=== PATIENT | male | born 1985 | race Caucasian/White ===

== ENCOUNTER 2017-09-15 09:57 | Emergency (ER) | payer BC ==
[2017-09-15 10:21] VITALS: BP 125/90
--- NOTE | 2017-09-15 10:43 | UC ---
Throat Pain/Nasal Jay HPI - HPI Summary HPI Summary: 32M presents with sore throat for past week. He states he has had could like symptoms for past week and then he developed a more severe sore throat in past couple days. He is still able to swallow. He states pain radiates to her ears. He denies any SOB or chest pain. Had a cough but that has disappear. He felt feverious. Took ibuprofen for pain. right tonsil at baseline is large than left. <Katia Taylor - Last Filed: 09/15/17 16:43> <Lennie Monzon - Last Filed: 09/15/17 18:58> - History of Current Complaint Chief Complaint: UCRespiratory Stated Complaint: COUGH, THROAT Time Seen by Provider: 09/15/17 10:26 - Allergies/Home Medications Allergies/Adverse Reactions: Allergies Allergy/AdvReac Type Severity Reaction Status Date / Time Penicillins Allergy Unknown Verified 09/15/17 10:21 Reaction Details Home Medications: Home Medications Dextromethorphan-Phenylephrine [Vicks Dayquil Cold & Flu] 2 cap PO DAILY PRN [History Confirmed 09/15/17] [id number] [Nyquil Severe Cold/Flu 5-6.25-10-325 mg/15Ml] 1 dose PO BEDTIME PRN 09/15/17 [History Confirmed 09/15/17] PMH/Surg Hx/FS Hx/Imm Hx Endocrine History: Other Other Endocrine History: no DM Cardiovascular History: Other Other Cardiovascular History: no HTN - Surgical History Surgical History: Yes Surgery Procedure, Year, and Place: L knee - Family History Known Family History: Positive: Hypertension - Social History Alcohol Use: Occasionally Substance Use Type: None Smoking Status (MU): Former Smoker Type: Cigarettes Amount Used/How Often: a few cigarettes a week Length of Time of Smoking/Using Tobacco: off/on past 3 yrs Have You Smoked in the Last Year: Yes When Did the Patient Quit Smoking/Using Tobacco: Summer 2016 <Katia Taylor - Last Filed: 09/15/17 16:43> Review of Systems Constitutional: Negative ENT: Sore Throat Respiratory: Negative Cardiovascular: Negative All Other Systems Reviewed And Are Negative: Yes <Katia Taylor - Last Filed: 09/15/17 16:43> Physical Exam Triage Information Reviewed: Yes Appearance: Well-Appearing Vital Signs: Initial Vital Signs Temp 97.6 F 09/15/17 10:13 Pulse 92 09/15/17 10:13 Resp 18 09/15/17 10:13 BP 125/90 09/15/17 10:13 Pulse Ox 99 09/15/17 10:13 Vital Signs Reviewed: Yes Eyes: Positive: Conjunctiva Clear ENT: Positive: Pharyngeal erythema, TMs normal, Tonsillar swelling - +@, Tonsillar exudate, Other: - uvula midline, soft palate symmetric, right tonsil> left but no shifting past midline. Negative: Trismus, Muffled/hoarse voice Neck: Positive: Supple, Nontender, No Lymphadenopathy Respiratory: Positive: Lungs clear, Normal breath sounds Cardiovascular: Positive: RRR Abdomen Description: Positive: Nontender, Soft Bowel Sounds: Positive: Present Musculoskeletal Exam: Normal Neurological Exam: Normal Psychological Exam: Normal Skin Exam: Normal <Katia Taylor - Last Filed: 09/15/17 16:43> Vital Signs: Initial Vital Signs Temp 97.6 F 09/15/17 10:13 Pulse 92 09/15/17 10:13 Resp 18 09/15/17 10:13 BP 125/90 09/15/17 10:13 Pulse Ox 99 09/15/17 10:13 <Lennie Monzon - Last Filed: 09/15/17 18:58> Throat Pain/Nasal Course/Dx - Course Course Of Treatment: 32M presents with sore throat for past week. He states he has had could like symptoms for past week and then he developed a more severe sore throat in past couple days. He is still able to swallow. He states pain radiates to her ears. He denies any SOB or chest pain. Had a cough but that has disappear. He felt feverious. Took ibuprofen for pain. on exam tonsils+2 , exudate, uvula midline, soft palate symmetric. right is large than left slightly but no uvula shift and patient states that is his baseline. warned of signs to go to ED for to look for peritonsillar abscess but does not appear as peritonsillar abscess at this time. strept attempted twice and invalid. due to symptoms will treat as strept with clind due to allergies. patient understand and agrees with plan. - Differential Dx/Diagnosis Differential Diagnosis/HQI/PQRI: Peritonsillar Abscess, Tonsillitis, Other - strept Provider Diagnoses: strept throat <Katia Taylor - Last Filed: 09/15/17 16:43> Discharge <Katia Taylor - Last Filed: 09/15/17 16:43> <Lennie Monzon - Last Filed: 09/15/17 18:58> - Discharge Plan Condition: Good Disposition: HOME Prescriptions: Clindamycin Cap(NF) [Clindamycin Cap 300 mg Cap(NF)] 300 mg PO TID #30 cap Dexamethasone TAB* [Decadron TAB*] 4 mg PO DAILY #5 tab Patient Education Materials: Strep Throat (ED) Forms: *School Release Referrals: No Primary Care Phys,NOPCP [Primary Care Provider] - Additional Instructions: Take antibiotic three times a day for 10 days Take steroid once a day for 5 days Take Tylenol or ibuprofen for pain/fever every 6 hours Can gargle salt water, use cough drops or products such as cloraseptic spray for pain Return to ED if develop difficulty breathing or unable to manage secretions, any new or worsening symptoms Attestation Statement User Type: Provider - I was available for consult. This patient was seen by the FRANCISCO. The patient was not presented to, seen by, or examined by me. -Aletha <Lennie Monzon - Last Filed: 09/15/17 18:58> Addendum entered and electronically signed by Katia Taylor PA 09/15/17 16: 43: UC Addendum Addendum: patient blood pressure likely do to symptoms.
== END 2017-09-15 12:31 | disposition home or self-care (01) ==
LOC: UCCORT 09:57
DX: J02.0 Streptococcal pharyngitis (principal); F17.210 Nicotine dependence, cigarettes, uncomplicated; Z88.0 Allergy status to penicillin
CPT/HCPCS: 99212; G0463

== ENCOUNTER 2017-12-06 17:08 | Emergency (ER) | payer BC ==
[2017-12-06 17:52] VITALS: BP 118/79
--- NOTE | 2017-12-06 18:56 | UC ---
Ear Complaint HPI - HPI Summary HPI Summary: recently was on z-liborio for ppneumonia now with 1-2 days worth of right ear pain and decreased hearing no f/c has nasal congestion - History of Current Complaint Chief Complaint: UCEar Stated Complaint: RIGHT EAR ISSUE Time Seen by Provider: 12/06/17 18:50 Hx Obtained From: Patient Onset/Duration: Gradual Onset, Lasting Days Severity Initially: Mild Severity Currently: Mild Pain Intensity: 4 Pain Scale Used: 0-10 Numeric Aggravating Factors: Nothing Associated Signs/Symptoms: Positive: Hearing Loss, URI Symptoms - Allergies/Home Medications Allergies/Adverse Reactions: Allergies Allergy/AdvReac Type Severity Reaction Status Date / Time Penicillins Allergy Unknown Verified 12/06/17 17:47 Reaction Details Home Medications: Home Medications Acetaminophen TAB* [Tylenol TAB*] 650 mg PO Q4H PRN 12/06/17 [History Confirmed 12/06/17] PMH/Surg Hx/FS Hx/Imm Hx Previously Healthy: Yes Respiratory History: Pneumonia - Surgical History Surgical History: Yes Surgery Procedure, Year, and Place: Left Knee Arthroscopy - Family History Known Family History: Positive: Hypertension - Social History Alcohol Use: None Substance Use Type: None Smoking Status (MU): Former Smoker Type: Cigarettes Amount Used/How Often: a few cigarettes a week Length of Time of Smoking/Using Tobacco: off/on past 3 yrs Have You Smoked in the Last Year: Yes When Did the Patient Quit Smoking/Using Tobacco: Summer 2016 Review of Systems Constitutional: Negative Skin: Negative Eyes: Negative ENT: Ear Ache, Nasal Discharge Respiratory: Negative Cardiovascular: Negative Gastrointestinal: Negative Genitourinary: Negative Motor: Negative Neurovascular: Negative Musculoskeletal: Negative Neurological: Negative Psychological: Negative Is Patient Immunocompromised?: No All Other Systems Reviewed And Are Negative: Yes Physical Exam Triage Information Reviewed: Yes Appearance: Well-Appearing, No Pain Distress Vital Signs: Initial Vital Signs Temp 98.8 F 12/06/17 17:46 Pulse 84 12/06/17 17:46 Resp 16 12/06/17 17:46 BP 118/79 12/06/17 17:46 Pulse Ox 98 12/06/17 17:46 Eyes: Positive: Conjunctiva Clear ENT: Positive: TM dull, TM red - right. Negative: Hearing grossly normal - decreased gem right ear, TMs normal - right tm retracted Neck: Positive: Supple, Nontender, No Lymphadenopathy Respiratory: Positive: Lungs clear, Normal breath sounds, No respiratory distress, No accessory muscle use Cardiovascular: Positive: RRR, No Murmur Abdomen Description: Positive: Nontender Bowel Sounds: Positive: Present Musculoskeletal: Positive: ROM Intact, No Edema Neurological: Positive: Alert Psychological Exam: Normal Skin Exam: Normal Ear Complaint Course/Dx - Differential Dx/Diagnosis Provider Diagnoses: right otitis media Discharge - Discharge Plan Condition: Stable Disposition: HOME Prescriptions: Cefuroxime Axetil [Ceftin 250 MG] 250 mg PO BID #20 tab Patient Education Materials: Otitis Media (ED) Referrals: Manpreet Lemus [Primary Care Provider] - 2 Weeks Additional Instructions: tylenol or advil for pain recheck in 2 weeks if hearing not back to normal
== END 2017-12-06 19:01 | disposition home or self-care (01) ==
LOC: UCCORT 17:08
DX: H66.91 Otitis media, unspecified, right ear (principal); Z87.891 Personal history of nicotine dependence
CPT/HCPCS: 99212; G0463

== ENCOUNTER 2020-02-07 09:03 | Emergency (ER) | payer BC ==
[2020-02-07 09:23] VITALS: BP 140/77
--- NOTE | 2020-02-07 09:25 | UC ---
Respiratory Complaint HPI - HPI Summary HPI Summary: The patient is a 34-year-old male who presents here with a 10 day history of nasal congestion and postnasal drip. He has had a cough. He has had a headache. He denies any fever or chills. He has had no chest pain or shortness of breath. He is fatigued. He works at a [employer]. He has about 10 coworkers. He states that his and children have similar symptoms. His had no nausea vomiting or diarrhea. He has bilateral ear fullness. 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 Negative: Dyspnea, Fever, Chills, Pleuritic Chest Pain, Wheezing, Hemoptysis, Dizziness, Calf Pain, Calf Swelling, Edema, Hoarseness - Risk Factors Pulmonary Embolism Risk Factors: Negative Cardiac Risk Factors: Negative Pseudomonas Risk Factors: Negative Tuberculosis Risk Factors: Negative - Allergies/Home Medications Allergies/Adverse Reactions: Allergies Allergy/AdvReac Type Severity Reaction Status Date / Time Penicillins Allergy Unknown Verified 02/07/20 09:17 Reaction Details Home Medications: Home Medications Acetaminophen TAB* [Tylenol TAB*] 650 mg PO Q4H PRN 12/06/17 [History Confirmed 12/06/17] Gabapentin CAP(*) [Neurontin 100 mg CAP(*)] 100 mg PO DAILY 02/07/20 [History Confirmed 02/07/20] ceFUROXime 250 MG TAB [Ceftin TAB(*)] 250 mg PO BID #20 tab 02/07/20 [Rx] PMH/Surg Hx/FS Hx/Imm Hx Previously Healthy: Yes - Surgical History Surgical History: Yes Surgery Procedure, Year, and Place: Left Knee Arthroscopy - Family History Known Family History: Positive: Hypertension - Social History Alcohol Use: Rare Substance Use Type: None Smoking Status (MU): Former Smoker Type: Cigarettes Amount Used/How Often: a few cigarettes a week Length of Time of Smoking/Using Tobacco: off/on past 3 yrs Have You Smoked in the Last Year: Yes When Did the Patient Quit Smoking/Using Tobacco: Summer 2016 Review of Systems All Other Systems Reviewed And Are Negative: Yes Constitutional: Positive: Fatigue Skin: Positive: Negative Eyes: Positive: Negative ENT: Positive: Ear Ache, Nasal Discharge, Sinus Congestion, Sinus Pain/ Tenderness Respiratory: Positive: Cough Cardiovascular: Positive: Negative Gastrointestinal: Positive: Negative Genitourinary: Positive: Negative Motor: Positive: Negative Neurovascular: Positive: Negative Musculoskeletal: Positive: Negative Neurological/Mental Status: Positive: Negative Psychological: Positive: Negative Physical Exam Triage Information Reviewed: Yes Appearance: Well-Appearing, No Pain Distress, Well-Nourished Vital Signs: Initial Vital Signs Temp 97.9 F 02/07/20 09:18 Pulse 84 02/07/20 09:18 Resp 18 02/07/20 09:18 BP 140/77 02/07/20 09:18 Pulse Ox 96 02/07/20 09:18 Vital Signs Reviewed: Yes Eyes: Positive: Conjunctiva Clear ENT: Positive: Hearing grossly normal, Nasal congestion, Nasal drainage, TM bulging - L, TM red - L, Sinus tenderness, Uvula midline. Negative: TMs normal - unable to vis right due to cerumen, Tonsillar swelling, Tonsillar exudate, Trismus, Muffled voice, Hoarse voice Dental Exam: Normal Neck: Positive: Supple, Nontender, No Lymphadenopathy Respiratory: Positive: No respiratory distress, No accessory muscle use, Rhonchi Cardiovascular: Positive: RRR, No Murmur Musculoskeletal: Positive: ROM Intact, No Edema Neurological: Positive: Alert Psychological Exam: Normal Skin Exam: Normal Respiratory Course/Dx - Differential Dx/Diagnosis Provider Diagnosis: Viral syndrome, Left otitis media Discharge ED - Sign-Out/Discharge Documenting (check all that apply): Patient Departure All imaging exams completed and their final reports reviewed: No Studies - Discharge Plan Condition: Stable Disposition: HOME Patient Education Materials: Ear Infection (ED), Viral Syndrome (ED) Referrals: Sunil Sullivan MD [Primary Care Provider] - Additional Instructions: you have wax in your right ear/your left ear is infected see you MD in 2 weeks to have it removed see isolation hand out - Billing Disposition and Condition Condition: STABLE Disposition: Home
== END 2020-02-07 10:25 | disposition home or self-care (01) ==
LOC: UCEAST 09:03
DX: B34.9 Viral infection, unspecified (principal); H66.92 Otitis media, unspecified, left ear; R53.83 Other fatigue; R09.89 Other specified symptoms and signs involving the circulatory and respiratory systems; R09.81 Nasal congestion; R05 Cough; R09.82 Postnasal drip; R51 Headache; Z88.0 Allergy status to penicillin; Z87.891 Personal history of nicotine dependence
CPT/HCPCS: 99212; G0463; U0002